=== PATIENT | female | born 1955 | race Caucasian/White ===

== ENCOUNTER 2019-10-09 14:05 | Outpatient (CLI) | payer BC, SELFPAY ==
--- NOTE | ~2019-10-09 | NM_ITS ---
EXAMINATION: NM thyroid scan w uptake DATE: 10/10/2019 16:04 INDICATION: Nontoxic multinodular goiter COMPARISON: Ultrasound dated 06/04/2019 TECHNIQUE: 121 microcuries I-123 was administered orally in capsule form. Scintigraphic images of th e thyroid gland were obtained at 24 hours. Thyroid uptake was calculated by the technologist. FINDINGS: The thyroid uptake is 13.5% (normal 10-30%), with the right lobe measuring 0% uptake and the left 13. 5%. IMPRESSION: 1. Normal 24-hour iodine uptake which is confined entirely to the left thyroid lobe. This suggests t he solid nodule on prior ultrasound which occupies a significant portion of the left thyroid lobe is a hyperfunctioning nodule with suppression of the remaining thyroid tissue. Reviewed, dictated and finalized at location A. PACKER IMPRESSION: 1. Normal 24-hour iodine uptake which is confined entirely to the left thyroid lobe. This suggests the solid nodule on prior ultrasound which occupies a sign ificant portion of the left thyroid lobe is a hyperfunctioning nodule with supp ression of the remaining thyroid tissue.
[2019-10-09 15:35] LABS: Thyroid Stimulating Hormone 0.024 uIU/mL (0.465-4.680)
[2019-10-09 16:02] LABS: Free T4 Free Thyroxine 0.86 ng/mL (0.78-2.19)
[2019-10-12 11:41] LABS: Triiodothyronine T3 Free 3.9 pg/mL (2.3-4.2)
[2019-10-14 14:58] LABS: Thyroid Stimulating Immunoglob <89 % baseline (<140)
== END 2019-10-09 14:06 | disposition home or self-care (01) ==
PROVIDERS: PCP Family Medicine; Visit Provider Physician Assistant
DX: E04.2 Nontoxic multinodular goiter (principal); R79.89 Other specified abnormal findings of blood chemistry
CPT/HCPCS: 36415; 78014; 84439; 84443; 84445; 84481; A9516

== ENCOUNTER 2020-04-03 19:05 | Emergency (ER) | payer BC, SELFPAY ==
[2020-04-03 19:15] VITALS: BP 184/95; PULSE 68; RESP 17; TEMP 36.2; O2SAT 100
[2020-04-03 20:36] LABS: Basophils Percent Auto 0.5 % (0.2-1.2); Eosinophils Absolute Auto 0.2 K/mm3 (0-0.3); Eosinophils Percent Auto 2.9 % (0-4.4); Hematocrit 40.7 % (37.0-47.0); Hemoglobin 13.7 g/dL (12.0-15.0); Immature Granulocyte Absolute 0.01 K/mm3 (0.00-0.031); Immature Granulocyte Percent A 0.2 % (0-0.5); Lymphocytes Absolute Auto 1.14 K/mm3 (0.9-3.2); Lymphocytes Percent Auto 19.3 % (18.3-44.2); Mean Corpuscular HGB Conc 33.7 g/dl (32-36); Mean Corpuscular Hemoglobin 28.6 pg (26-34); Mean Platelet Volume 8.5 fl (7.4-10.4); Monocytes Absolute Auto 0.5 K/mm3 (0.1-0.6); Neutrophils Absolute Auto 4.1 K/mm3 (1.3-6.7); Neutrophils Percent Auto 69.1 % (45.5-73.1); Platelet Count Result 249 k/mm3 (150-375); Red Blood Count 4.79 M/mm3 (4.2-5.4); Red Cell Distribution Width 12.6 % (11.5-14.5); White Blood Count 5.9 K/mm3 (4.5-10.0)
[2020-04-03 20:47] VITALS: BP 182/101; PULSE 67; RESP 15; TEMP 36.4; O2SAT 100
[2020-04-03 20:49] LABS: Anion Gap 4 mmol/L (8-16); Blood Urea Nitrogen 13 mg/dL (7-17); Calcium 9.6 mg/dL (8.4-10.2); Carbon Dioxide 26 mmol/L (22-30); Chloride 108 mmol/L (98-107); Estimated CRCL calculation 73 ml/min; Estimated Glomerular Filt Rate > 60; Glucose 173 mg/dL (65-105); Potassium 4.1 mmol/L (3.4-5.0); Sodium 138 mmol/L (137-145)
[2020-04-03] MEDS: cloNIDine HCL 0.1 MG TABLET PO (20:49)
[2020-04-03 20:50] VITALS: RESP 10; O2SAT 100
[2020-04-03 21:01] VITALS: BP 176/98; PULSE 62; RESP 9; O2SAT 99
[2020-04-03 21:48] VITALS: BP 161/91; PULSE 73; RESP 20; O2SAT 99
--- NOTE | 2020-04-03 21:50 | ED.GENADULT ---
HPI - General Adult General Chief complaint: Recheck/Abnormal Lab/Rx Stated complaint: high bp Time Seen by Provider: 04/03/20 19:55 Source: patient Mode of arrival: ambulatory Limitations: no limitations History of Present Illness HPI narrative: 64-year-old with a history of hypertension here with complaints of elevated blood pressure since this morning. She is called her primary doctor who advised her to come to the ER. She also complains of headache. She denies any chest pain or shortness of breath. She states that she has been taking her medication as prescribed. Onset (ago): day(s) (1) Location: head Severity: moderate Severity scale (1-10): 4 Quality: aching Relieving factors: none Associated symptoms: headaches Treatments prior to arrival: none Related Data Home Medications Medication Instructions Recorded Confirmed hydroxyzine HCl 10 mg tablet 10 mg PO TID PRN 08/11/19 12/02/19 Saccharomyces boulardii 250 mg 250 mg PO BID 03/04/20 capsule multivitamin,[id number] 1 tablet PO DAILY 03/04/20 Allergies Allergy/AdvReac Type Severity Reaction Status Date / Time azithromycin Allergy Intermediate HIVES AND Verified 04/03/20 19:18 RASH Aoiwney-Sgq-Mpf Reductase Allergy Intermediate HIVES AND Verified 04/03/20 19:18 Inhibitor RASH Sulfa (Sulfonamide Allergy Intermediate HIVES AND Verified 04/03/20 19:18 Antibiotics) RASH clarithromycin Allergy Unknown RASH Verified 04/03/20 19:18 erythromycin base Allergy Unknown RASH Verified 04/03/20 19:18 latex Allergy Unknown Rash Verified 04/03/20 19:18 Macrolide Antibiotics Allergy Unknown Hives / Verified 04/03/20 19:18 Red Face Penicillins Allergy Unknown RASH Verified 04/03/20 19:18 FLU VACCINE [id number](18 YR AdvReac Severe SICK FOR 3 Uncoded 03/04/20 10:37 +) DAYS Review of Systems Review of Systems: All systems reviewed & are unremarkable except as noted in HPI and below Constitutional: Constitutional: Reports as per HPI Eyes: Eyes: Reports as per HPI ENT: Reports system reviewed and no additional complaints, except as documented Cardiovascular: Cardiovascular: Reports as per HPI Respiratory: Respiratory: Reports no additional respiratory complaints Gastrointestinal: Gastrointestinal: Reports as per HPI Musculoskeletal: Musculoskeletal: Reports no additional musculoskeletal complaints Neurologic: Reports system reviewed and no additional complaints, except as documented PMFSH Past Medical History Medical History Chest pain Cholecystectomy planned Headache High blood pressure Nontoxic multinodular goiter Obesity Tonsillectomy planned Type 2 diabetes mellitus with hyperglycemia Surgical History Surgical History History of appendectomy History of bilateral tubal ligation History of rotator cuff surgery Family History Family History Father Cerebrovascular accident Family history of diabetes mellitus in first degree relative Diabetes mellitus, Onset Age: 50 Hypertension Family history of type 2 diabetes mellitus Sibling Cerebrovascular accident Hypertension Patient's sister is in good health Grandparent Family history of pancreatic cancer Family history of hearing loss Mother Patient's mother is in good health Other Family history of multiple sclerosis Social History Social History Smoking status: Never smoker Second hand tobacco smoke exposure: No Alcohol intake: never Gender identity (if verbalized by the patient): Female Exam Narrative: Exam Narrative: GENERAL: Well-appearing, well-nourished, and in no acute distress. HEAD: Normocephalic, atraumatic. EYES: PERRLA and EOMI. ENT: Nares clear, no rhinorrhea or epistaxis. Mucous membranes moist. NECK: Supple. CHEST: Clear t
[2020-04-03 22:31] VITALS: BP 152/90; PULSE 69; RESP 13; TEMP 36.8; O2SAT 99
[2020-04-03 22:59] LABS: Add Urine Microscopic? YES; Appearance Urine Clear (Clear); Bilirubin Urine Negative (Negative); Blood Urine Negative (Negative); Color Urine Yellow (Yellow); Glucose Urine UA 1+ mg/dL (Negative); Ketones Urine Negative (Negative); Leukocyte Esterase Ur Trace LEU/UL (Negative); Nitrate Urine Negative (Negative); Protein Urine Negative (Negative); RBC Urine 0-2 /hpf (0-2); Specific Grav Ur 1.018 (1.001-1.035); Squamous Epithelial Cell Urine Occasional /hpf (Few); Urobilinogen Urine Negative mg/dL (<2.0)
== END 2020-04-03 22:43 | disposition home or self-care (01) ==
PROVIDERS: Emergency Provider Family Medicine; PCP Family Medicine
DX: I10 Essential (primary) hypertension (principal); E11.9 Type 2 diabetes mellitus without complications; E66.9 Obesity, unspecified; Z68.31 Body mass index [BMI] 31.0-31.9, adult
CPT/HCPCS: 36415; 80048; 81001; 84443; 85025; 87086; 87088; 99283; A9270

== ENCOUNTER 2020-05-17 13:11 | Outpatient (NON) | payer BC, SELFPAY ==
[2020-05-17 21:25] LABS: SARS-CoV-2 RNA PCR Positive
== END 2020-05-17 13:12 ==
PROVIDERS: PCP Family Medicine; Visit Provider Family Medicine
DX: Z20.828 Contact with and (suspected) exposure to other viral communicable diseases (principal)
CPT/HCPCS: 87635; C9803; U0003

== ENCOUNTER 2020-09-13 10:26 | Outpatient (CLI) | payer OTHER, SELFPAY ==
--- NOTE | ~2020-09-13 | MM_ITS ---
EXAMINATION: MM screening dmitry BI w jay HISTORY: Screening mammogram TECHNIQUE: Craniocaudal and mediolateral oblique 3-D tomosynthesis images were obtained and synthetic 2-D images were generated. CAD analysis was submitted and interpreted. COMPARISON: 02/27/2018, 02/22/2017, 02/11/2016 bilateral digital screening mammogram examinations BREAST PARENCHYMAL COMPOSITION: The breasts are almost entirely fatty. FINDINGS: There is no evidence of suspicious mass, calcification, or architectural distortion to sugg est malignancy in either breast. There has been no suspicious interval change. IMPRESSION: 1. No mammographic evidence of malignancy. 2. Recommend routine screening mammography in one year. BI-RADS Category 1: Negative Reviewed, dictated and finalized at location A. WASHER
== END 2020-09-13 10:27 | disposition home or self-care (01) ==
LOC: ANHIMG 10:30
PROVIDERS: PCP Family Medicine; Visit Provider Obstetrics & Gynecology
DX: Z12.31 Encounter for screening mammogram for malignant neoplasm of breast (principal)
CPT/HCPCS: 77063; 77067

== ENCOUNTER 2021-05-09 11:13 | Outpatient (CLI) | payer OTHER, SELFPAY ==
--- NOTE | ~2021-05-09 | US_ITS ---
EXAMINATION: US thyroid EXAM DATE: 05/09/2021 11:40 INDICATION: E03.9 - Hypothyroidism, unspecified. Thyroid nodules previously biopsied. TECHNIQUE: Multiple grayscale and Doppler images of the thyroid were obtained (by a technologist who performed the scan) and subsequently reviewed. Individual nodules and recommendations may be reporte d in accordance with TI-RADS system as designated by the 2017 ACR White Paper TI-RADS committee. Comp philip is made to prior examination from 06/04/2019. FINDINGS: The right there are lobe measures 3.9 x 1.2 x 1.1 cm, the left measuring 4.2 x 1.4 x 1.9 cm. These di mensions are smaller than on the previous 2 examinations, thyroid gland appears to have been decreasi ng in size. Largest thyroid nodule is in the right thyroid lobe measuring 1.8 x 1.1 x 1.7 cm (previou sly 2.1 x 2.0 x 1.4). Largest on the left measures 1.7 x 1.2 x 1.3 cm (previously 2.7 x 1.8 x 2.1 cm) . IMPRESSION: Thyroid gland and nodules with interval decrease in size, consistent with benign histolog y. Return to clinical follow-up and if additional palpable abnormality develops a repeat ultrasound c an be obtained. Reviewed, dictated and finalized at location A. IMPRESSION: Thyroid gland and nodules with interval decrease in size, consisten t with benign histology. Return to clinical follow-up and if additional palpabl e abnormality develops a repeat ultrasound can be obtained.
== END 2021-05-09 11:14 | disposition home or self-care (01) ==
PROVIDERS: PCP Family Medicine; Visit Provider Internal Medicine Endocrinology, Diabetes & Metabolism
DX: E03.9 Hypothyroidism, unspecified (principal); E05.20 Thyrotoxicosis with toxic multinodular goiter without thyrotoxic crisis or storm
CPT/HCPCS: 76536

== ENCOUNTER 2022-01-04 13:26 | Outpatient (CLI) | payer OTHER, SELFPAY ==
--- NOTE | ~2022-01-04 | MM_ITS ---
EXAMINATION: MM screening dmitry BI w jay HISTORY: Screening mammogram TECHNIQUE: Craniocaudal and mediolateral oblique 3-D tomosynthesis images were obtained and synthetic 2-D images were generated. CAD analysis was submitted and interpreted. COMPARISON: September 13, 2020, February 27, 2018 bilateral screening mammogram examinations BREAST PARENCHYMAL COMPOSITION: The breasts are almost entirely fatty. FINDINGS: There is no evidence of suspicious mass, calcification, or architectural distortion to sugg est malignancy in either breast. There has been no suspicious interval change. IMPRESSION: 1. No mammographic evidence of malignancy. 2. Recommend routine screening mammography in one year. BI-RADS Category 1: Negative Reviewed, dictated and finalized at location A.
== END 2022-01-04 13:27 | disposition home or self-care (01) ==
PROVIDERS: PCP Family Medicine; Visit Provider Physician Assistant
DX: Z12.31 Encounter for screening mammogram for malignant neoplasm of breast (principal)
CPT/HCPCS: 77063; 77067